=== PATIENT | female | born 1950 | race Caucasian/White ===

== ENCOUNTER 2017-04-28 11:26 | Inpatient (IN) | payer BC ==
[~2017-04-28] VITALS: Ht 160 cm; Wt 96.7 kg
[~2017-04-28 11:26] MED LIST: ASPIRIN E.C.81 M1 PO; AZOR 5/40 MG1 TABLET PO; AZOR PO; Benadryl PO; Colace PO; Ecotrin PO; FISH OIL 1,2001 EAC4 PO; Feosol PO; HYDROCHLOROTHIA25 MG PO; LO-DOSE ASPIRIN81 M1 PO; Levothroid,Synthroid PO; MELATONIN 3 MG1 EAC1 PO; Melatonin PO; OSCAL, OYSTER500 MG PO; Omega III EPA + DHA PO; PRAVACHOL20 MG PO; PRILOSEC OTC20 M1 PO; PROBIOTIC1 EAC1 PO; PROTONIX40 MG PO; PROVENTIL HFA6.7 GM IH; Pravachol PO; PriLOSEC OTC PO; Proventil,Ventolin H IH; SYMBICORT60 INHALA1 IH; SYNTHROID50 MCG PO; Senokot S,Pericolace PO; Symbicort 80-4.5 mcg IH; TENORMIN50 MG PO; TYLENOL EXTRA500 MG PO; Tenormin PO; VITAMIN D31000 UNIT PO; Vicodin,Norco 5/325 PO; ZESTRIL,PRINIVI10 M1 PO; predniSONE PO
[2017-04-28 12:14] LABS: HEMATOCRIT 37.9 % (36.0-46.0); HEMOGLOBIN 12.7 G/DL (11.9-15.5); MCH 29.1 PG (29.0-34.0); MCHC 33.5 G/DL (30.0-36.0); MCV 86.9 FL (83-99); PLATELET COUNT 197 K/uL (156-360); RBC DIS.WIDTH-CV 13.3 % (11.8-14.6); RBC DIS.WIDTH-SD 41.4 % (39-53); RED BLOOD COUNT 4.36 M/uL (3.80-5.20); WHITE BLOOD COUNT 10.1 K/uL (4.1-10.2)
[2017-04-28 12:25] LABS: CHLORIDE 105 mEq/L (99-109); POTASSIUM 4.2 mEq/L (3.7-5.4); SODIUM 139 mEq/L (136-147)
[2017-04-28 12:26] LABS: GLUCOSE 157 mg/dL (70-99)
[2017-04-28 12:30] LABS: GFR ESTIMATE (CALCULATED) > 59 mL/min/
[2017-04-28 12:31] LABS: UREA NITROGEN (BUN) 9 mg/dL (9-23)
[2017-04-28 12:38] LABS: TROP-I INTERPRETATION NEGATIVE; TROPONIN-I < 0.01 ng/mL (0.0-0.30)
[2017-04-28 14:02] LABS: INTER. NORMALIZED RATIO 1.2
[2017-04-28 14:05] LABS: PTT 26.2 SEC (25-37)
[2017-04-28] MEDS ORDERED: LEVOTHYROXINE50 MCG PO (17:32)
[2017-04-28] MEDS ORDERED: TENORMIN100 MG PO (17:34)
[2017-04-28] MEDS ORDERED: ASPIR 8181 M1 PO (17:38)
[2017-04-28] MEDS ORDERED: AZOR 10/40 M1 TABLET PO (17:42)
[2017-04-28] MEDS ORDERED: LEVEMIR FL100 UNIT/1 SC (17:48)
[2017-04-28] MEDS ORDERED: VICODIN 5-3001 EACH PO (17:51)
[2017-04-28 19:04] LABS: TROP-I INTERPRETATION NEGATIVE; TROPONIN-I < 0.01 ng/mL (0.0-0.30)
[2017-04-28 20:11] VITALS: BP 163/70
[2017-04-28] MEDS ORDERED: PRAVASTATIN SOD40 MG PO (23:09)
[2017-04-28 23:35] VITALS: BP 164/72
[2017-04-29 01:30] LABS: TROP-I INTERPRETATION NEGATIVE; TROPONIN-I < 0.01 ng/mL (0.0-0.30)
[2017-04-29 03:27] VITALS: BP 138/62
[2017-04-29 06:13] LABS: INTER. NORMALIZED RATIO 1.3
[2017-04-29 06:15] LABS: PTT 48.6 SEC (25-37)
[2017-04-29 07:34] VITALS: BP 126/66
[2017-04-29] MEDS ORDERED: XARELTO1 EACH PO (11:40)
[2017-04-29 12:13] VITALS: BP 142/69
[2017-04-29] MEDS ORDERED: ELIQUIS5 MG PO (12:13)
[2017-04-29 13:37] LABS: HEMATOCRIT 36.2 % (36.0-46.0); MCH 28.2 PG (29.0-34.0); MCHC 33.1 G/DL (30.0-36.0); MCV 85.2 FL (83-99); PLATELET COUNT 210 K/uL (156-360); RBC DIS.WIDTH-CV 13.1 % (11.8-14.6); RBC DIS.WIDTH-SD 39.8 % (39-53); RED BLOOD COUNT 4.25 M/uL (3.80-5.20); WHITE BLOOD COUNT 11.3 K/uL (4.1-10.2)
[2017-04-29 13:46] LABS: TROP-I INTERPRETATION NEGATIVE; TROPONIN-I 0.01 ng/mL (0.0-0.30)
[2017-04-29 13:47] LABS: ALBUMIN 3.8 G/DL (3.2-4.8); ALKALINE PHOSPHATASE 70 IU/L (3-129); ALT (GPT) 10 IU/L (3-49); AST (GOT) 13 IU/L (2-34); CHLORIDE 101 MEQ/L (99-109); CREATININE 0.9 MG/DL (0.6-1.3); GFR ESTIMATE (CALCULATED) > 59 mL/min/; SODIUM 135 MEQ/L (136-147); TOTAL BILIRUBIN 1.3 MG/DL (0.0-1.0); TOTAL PROTEIN 6.8 G/DL (6.4-8.3); UREA NITROGEN (BUN) 19 mg/dL (9-23)
[2017-04-29 13:48] LABS: GLUCOSE 324 mg/dL (70-99)
[2017-04-29 16:24] VITALS: BP 119/76
[2017-04-29 20:00] VITALS: BP 133/76
[2017-04-30] VITALS: BP 154/68
[2017-04-30 03:46] VITALS: BP 148/71
[2017-04-30 08:12] VITALS: BP 140/62
[2017-04-30 10:03] LABS: BASOPHIL (%) 0.1 % (0-1); EOSINOPHIL (%) 0.1 % (0-5); HEMATOCRIT 35.1 % (36.0-46.0); HEMOGLOBIN 11.7 G/DL (11.9-15.5); IMMATURE GRANULOCYTE (%) 1.5 % (0.0-0.7); LYMPHOCYTE (%) 7.3 % (15-42); MCH 28.6 PG (29.0-34.0); MCHC 33.3 G/DL (30.0-36.0); MCV 85.8 FL (83-99); MONOCYTE (%) 6.5 % (3-12); MONOCYTE COUNT 0.9 K/uL (0-0.8); NEUTROPHIL (%) 84.5 % (45-76); NEUTROPHIL COUNT 11.2 K/uL (1.8-6.4); PLATELET COUNT 246 K/uL (156-360); RBC DIS.WIDTH-CV 13.2 % (11.8-14.6); RBC DIS.WIDTH-SD 40.7 % (39-53); RED BLOOD COUNT 4.09 M/uL (3.80-5.20); WHITE BLOOD COUNT 13.2 K/uL (4.1-10.2)
[2017-04-30 10:15] LABS: CHLORIDE 104 mEq/L (99-109); POTASSIUM 4.7 mEq/L (3.7-5.4); SODIUM 138 mEq/L (136-147)
[2017-04-30 10:16] LABS: MAGNESIUM 2.2 mg/dL (1.3-2.7)
[2017-04-30 10:17] LABS: GLUCOSE 278 mg/dL (70-99)
[2017-04-30 10:21] LABS: GFR ESTIMATE (CALCULATED) > 59 mL/min/
[2017-04-30 10:23] LABS: UREA NITROGEN (BUN) 30 mg/dL (9-23)
[2017-04-30] MEDS ORDERED: ATENOLOL100 MG PO (10:44)
[2017-04-30 10:57] VITALS: BP 140/92
[2017-04-30] MEDS ORDERED: PREDNISONE10 MG PO (11:06)
[2017-04-30] MEDS ORDERED: ELIQUIS5 MG PO (12:00)
[2017-04-30 12:17] VITALS: BP 125/67
== END 2017-04-30 14:15 | disposition home or self-care (01) | DRG 176 ==
LOC: EME 11:26 → 5SOUTH 17:29 → EDOF 17:29 → ENRESERV 17:32 → 5SOUTH 19:27
PROVIDERS: Hospitalist; Physician Assistant
DX: I26.99 Other pulmonary embolism without acute cor pulmonale (principal); I82.441 Acute embolism and thrombosis of right tibial vein; E11.65 Type 2 diabetes mellitus with hyperglycemia; T38.0X5A Adverse effect of glucocorticoids and synthetic analogues, initial encounter; I27.20 Pulmonary hypertension, unspecified; M72.2 Plantar fascial fibromatosis; E78.5 Hyperlipidemia, unspecified; E03.9 Hypothyroidism, unspecified; I10 Essential (primary) hypertension; I25.10 Atherosclerotic heart disease of native coronary artery without angina pectoris; D64.9 Anemia, unspecified; G43.909 Migraine, unspecified, not intractable, without status migrainosus; J45.909 Unspecified asthma, uncomplicated; K21.9 Gastro-esophageal reflux disease without esophagitis; Z95.1 Presence of aortocoronary bypass graft
CPT/HCPCS: 71046; 71275; 80048; 80053; 82948; 83735; 84484; 85025; 85027; 85610; 85730; 93005; 93306; 93970; 94640; 94640 76; 94799; 99202; 99281; 99285; J1815; J2920; J7512

== ENCOUNTER 2017-05-14 17:16 | Emergency (ER) | payer BC ==
[~2017-05-14] VITALS: Ht 160 cm; Wt 96.2 kg
[~2017-05-14 17:16] MED LIST changes: +ASPIR 8181 M1 PO; +ATENOLOL100 MG PO; +AZOR 10/40 M1 TABLET PO; +ELIQUIS5 MG PO; +LEVEMIR FL100 UNIT/1 SC; +LEVOTHYROXINE50 MCG PO; +PRAVASTATIN SOD40 MG PO; +PREDNISONE10 MG PO; +TENORMIN100 MG PO; +VICODIN 5-3001 EACH PO; +XARELTO1 EACH PO
[2017-05-14 18:16] LABS: HEMATOCRIT 35.8 % (36.0-46.0); MCH 28.8 PG (29.0-34.0); MCHC 33.5 G/DL (30.0-36.0); MCV 86.1 FL (83-99); PLATELET COUNT 201 K/uL (156-360); RBC DIS.WIDTH-CV 13.5 % (11.8-14.6); RBC DIS.WIDTH-SD 42.5 % (39-53); RED BLOOD COUNT 4.16 M/uL (3.80-5.20); WHITE BLOOD COUNT 8.4 K/uL (4.1-10.2)
[2017-05-14 18:26] LABS: INTER. NORMALIZED RATIO 1.7
[2017-05-14 18:31] LABS: ALBUMIN 3.6 g/dL (3.2-4.8); CHLORIDE 103 mEq/L (99-109); POTASSIUM 4.3 mEq/L (3.7-5.4); PTT 29.1 SEC (25-37); SODIUM 140 mEq/L (136-147)
[2017-05-14 18:33] LABS: GLUCOSE 202 mg/dL (70-99); TOTAL PROTEIN 6.8 g/dL (6.4-8.3)
[2017-05-14 18:35] LABS: TOTAL BILIRUBIN 1.7 mg/dL (0.0-1.0)
[2017-05-14 18:37] LABS: ALKALINE PHOSPHATASE 87 IU/L (3-129); CREATININE 0.9 mg/dL (0.6-1.3); GFR ESTIMATE (CALCULATED) > 59 mL/min/
[2017-05-14 18:38] LABS: UREA NITROGEN (BUN) 13 mg/dL (9-23)
[2017-05-14 18:39] LABS: AST (GOT) 19 IU/L (2-34)
[2017-05-14 18:40] LABS: ALT (GPT) 17 IU/L (3-49); TROP-I INTERPRETATION NEGATIVE; TROPONIN-I < 0.01 ng/mL (0.0-0.30)
[2017-05-14] MEDS ORDERED: FLEXERIL10 MG PO (18:42)
[2017-05-14] MEDS ORDERED: DUONEB 2.5-0.5 M3 ML AEROSOL (20:17)
[2017-05-14] MEDS ORDERED: NEBULIZER MC (20:17)
[2017-05-14 21:06] VITALS: BP 117/59
== END 2017-05-14 21:08 | disposition home or self-care (01) ==
LOC: EME 17:16
PROVIDERS: Emergency Medicine Emergency Medical Services
DX: M62.838 Other muscle spasm (principal); I26.99 Other pulmonary embolism without acute cor pulmonale; R06.00 Dyspnea, unspecified; M72.2 Plantar fascial fibromatosis; E11.9 Type 2 diabetes mellitus without complications; E78.5 Hyperlipidemia, unspecified; E03.9 Hypothyroidism, unspecified; J45.909 Unspecified asthma, uncomplicated; Z79.01 Long term (current) use of anticoagulants; Z79.82 Long term (current) use of aspirin; Z79.4 Long term (current) use of insulin; Z90.49 Acquired absence of other specified parts of digestive tract
CPT/HCPCS: 71045; 80053; 83880; 84484; 85027; 85610; 85730; 93005; 94640; 99281; 99284

== ENCOUNTER 2017-06-07 20:21 | Emergency (ER) | payer BC ==
[~2017-06-07] VITALS: Ht 160 cm; Wt 96.1 kg
[~2017-06-07 20:21] MED LIST changes: +DUONEB 2.5-0.5 M3 ML AEROSOL; +FLEXERIL10 MG PO; +NEBULIZER MC
[2017-06-07 21:16] LABS: BASOPHIL (%) 0.3 % (0-1); EOSINOPHIL (%) 2.3 % (0-5); EOSINOPHIL COUNT 0.2 K/uL (0-0.3); HEMATOCRIT 37.2 % (36.0-46.0); HEMOGLOBIN 12.2 G/DL (11.9-15.5); IMMATURE GRANULOCYTE (%) 0.3 % (0.0-0.7); LYMPHOCYTE (%) 21.1 % (15-42); LYMPHOCYTE COUNT 1.9 K/uL (1.0-2.8); MCH 28.2 PG (29.0-34.0); MCHC 32.8 G/DL (30.0-36.0); MCV 86.1 FL (83-99); MONOCYTE (%) 7.7 % (3-12); MONOCYTE COUNT 0.7 K/uL (0-0.8); NEUTROPHIL (%) 68.3 % (45-76); NEUTROPHIL COUNT 6.2 K/uL (1.8-6.4); RBC DIS.WIDTH-CV 13.9 % (11.8-14.6); RBC DIS.WIDTH-SD 43.5 % (39-53); RED BLOOD COUNT 4.32 M/uL (3.80-5.20); WHITE BLOOD COUNT 9.1 K/uL (4.1-10.2)
[2017-06-07 21:20] LABS: PLATELET COUNT 269 K/uL (156-360)
[2017-06-07 21:24] LABS: CHLORIDE 103 mEq/L (99-109); POTASSIUM 4.1 mEq/L (3.7-5.4); SODIUM 138 mEq/L (136-147)
[2017-06-07 21:26] LABS: GLUCOSE 202 mg/dL (70-99)
[2017-06-07 21:30] LABS: CREATININE 0.9 mg/dL (0.6-1.3); GFR ESTIMATE (CALCULATED) > 59 mL/min/; INTER. NORMALIZED RATIO 1.6
[2017-06-07 21:31] LABS: UREA NITROGEN (BUN) 13 mg/dL (9-23)
[2017-06-07 21:32] LABS: PTT 30.7 SEC (25-37)
[2017-06-07 23:16] LABS: URIC ACID 5.6 mg/dL (3.1-9.2)
[2017-06-08] MEDS ORDERED: PREDNISONE10 MG PO (00:34)
[2017-06-08] MEDS ORDERED: TRAMADOL HCL50 MG PO (00:35)
[2017-06-08 01:20] VITALS: BP 126/52
== END 2017-06-08 01:26 | disposition home or self-care (01) ==
LOC: EME 20:21
PROVIDERS: Physician Assistant
DX: M10.9 Gout, unspecified (principal); J45.909 Unspecified asthma, uncomplicated; E78.5 Hyperlipidemia, unspecified; E11.9 Type 2 diabetes mellitus without complications; E03.9 Hypothyroidism, unspecified; Z79.4 Long term (current) use of insulin; Z79.82 Long term (current) use of aspirin
CPT/HCPCS: 73130; 73200; 80048; 84550; 85025; 85610; 85730; 93971; 99281; 99285; J7512

== ENCOUNTER 2017-09-08 21:32 | Emergency (ER) | payer OTHER, MEDICARE ==
[~2017-09-08] VITALS: Ht 160 cm; Wt 95.5 kg
[~2017-09-08 21:32] MED LIST changes: +TRAMADOL HCL50 MG PO
[2017-09-08 22:08] LABS: HEMATOCRIT 36.2 % (36.0-46.0); HEMOGLOBIN 12.1 G/DL (11.9-15.5); MCH 28.2 PG (29.0-34.0); MCHC 33.4 G/DL (30.0-36.0); MCV 84.4 FL (83-99); PLATELET COUNT 219 K/uL (156-360); RBC DIS.WIDTH-CV 13.7 % (11.8-14.6); RBC DIS.WIDTH-SD 42.1 % (39-53); RED BLOOD COUNT 4.29 M/uL (3.80-5.20); WHITE BLOOD COUNT 10.5 K/uL (4.1-10.2)
[2017-09-08 22:17] LABS: CHLORIDE 103 mEq/L (99-109); POTASSIUM 4.2 mEq/L (3.7-5.4); SODIUM 139 mEq/L (136-147)
[2017-09-08 22:19] LABS: GLUCOSE 160 mg/dL (70-99)
[2017-09-08 22:20] LABS: TOTAL PROTEIN 7.5 g/dL (6.4-8.3)
[2017-09-08 22:21] LABS: TOTAL BILIRUBIN 1.7 mg/dL (0.0-1.0)
[2017-09-08 22:23] LABS: ALKALINE PHOSPHATASE 103 IU/L (3-129); GFR ESTIMATE (CALCULATED) > 59 mL/min/
[2017-09-08 22:24] LABS: UREA NITROGEN (BUN) 13 mg/dL (9-23)
[2017-09-08 22:25] LABS: AST (GOT) 12 IU/L (2-34)
[2017-09-08 22:26] LABS: ALT (GPT) 8 IU/L (3-49)
[2017-09-09 00:11] LABS: APPEARANCE CLEAR ((CLEAR)); BILIRUBIN NEGATIVE; BLOOD NEGATIVE; COLOR YELLOW ((YELLOW)); GLUCOSE (STRIP) NEGATIVE; KETONES NEGATIVE; LEUKOCYTES TRACE; NITRITE NEGATIVE; PROTEIN (STRIP) NEGATIVE; SPECIFIC GRAVITY 1.018 (1.000-1.030)
[2017-09-09 00:13] LABS: BACTERIA NONE SEEN /HPF; EPITHELIAL CELLS RARE /HPF; MUCUS TRACE /LPF; RED BLOOD CELLS 0-5 /HPF (0-5); UCUL ADDED? NO; WHITE BLOOD CELLS 0-5 /HPF (0-5)
[2017-09-09] MEDS ORDERED: VENTOLIN HFA18 GM IH (01:28)
[2017-09-09] MEDS ORDERED: AUGMENTIN875 MG PO (01:28)
[2017-09-09] MEDS ORDERED: PREDNISONE20 MG PO (01:28)
[2017-09-09 02:02] VITALS: BP 134/60
== END 2017-09-09 02:03 | disposition home or self-care (01) ==
LOC: EME 21:32
DX: J20.9 Acute bronchitis, unspecified (principal); J32.9 Chronic sinusitis, unspecified; J45.909 Unspecified asthma, uncomplicated; E11.9 Type 2 diabetes mellitus without complications; E78.5 Hyperlipidemia, unspecified; E03.9 Hypothyroidism, unspecified; Z86.711 Personal history of pulmonary embolism; Z86.718 Personal history of other venous thrombosis and embolism; Z79.01 Long term (current) use of anticoagulants; Z95.1 Presence of aortocoronary bypass graft; Z95.0 Presence of cardiac pacemaker; Z79.4 Long term (current) use of insulin; Z79.82 Long term (current) use of aspirin; Z88.1 Allergy status to other antibiotic agents; Z88.8 Allergy status to other drugs, medicaments and biological substances
CPT/HCPCS: 71046; 80053; 81003; 85027; 94640; 99281; 99284; J2405; J7030; J7512

== ENCOUNTER 2017-10-13 18:44 | Inpatient (IN) | payer OTHER, MEDICARE ==
[~2017-10-13] VITALS: Ht 160 cm; Wt 94.9 kg
[~2017-10-13 18:44] MED LIST changes: +AUGMENTIN875 MG PO; -AZOR 10/40 M1 TABLET PO; +PREDNISONE20 MG PO; +VENTOLIN HFA18 GM IH; -VICODIN 5-3001 EACH PO
[2017-10-13 20:02] LABS: APPEARANCE CLEAR ((CLEAR)); BILIRUBIN NEGATIVE; BLOOD NEGATIVE; COLOR STRAW ((YELLOW)); GLUCOSE (STRIP) NEGATIVE; KETONES NEGATIVE; LEUKOCYTES SMALL; NITRITE NEGATIVE; PROTEIN (STRIP) NEGATIVE; SPECIFIC GRAVITY 1.009 (1.000-1.030); UROBILINOGEN 0.2 MG/DL (0.2-1.0)
[2017-10-13 20:16] LABS: BACTERIA RARE /HPF; EPITHELIAL CELLS 1+ /HPF; MUCUS TRACE /LPF; RED BLOOD CELLS 0-5 /HPF (0-5); UCUL ADDED? NO; WHITE BLOOD CELLS 0-5 /HPF (0-5)
[2017-10-13 20:34] LABS: BASOPHIL (%) 0.4 % (0-1); EOSINOPHIL (%) 2.7 % (0-5); EOSINOPHIL COUNT 0.2 K/uL (0-0.3); HEMATOCRIT 37.6 % (36.0-46.0); HEMOGLOBIN 12.3 G/DL (11.9-15.5); IMMATURE GRANULOCYTE (%) 0.4 % (0.0-0.7); LYMPHOCYTE (%) 19.4 % (15-42); LYMPHOCYTE COUNT 1.4 K/uL (1.0-2.8); MCH 27.8 PG (29.0-34.0); MCHC 32.7 G/DL (30.0-36.0); MCV 85.1 FL (83-99); MONOCYTE (%) 8.1 % (3-12); MONOCYTE COUNT 0.6 K/uL (0-0.8); PLATELET COUNT 274 K/uL (156-360); RBC DIS.WIDTH-CV 13.2 % (11.8-14.6); RBC DIS.WIDTH-SD 41.1 % (39-53); RED BLOOD COUNT 4.42 M/uL (3.80-5.20); WHITE BLOOD COUNT 7.3 K/uL (4.1-10.2)
[2017-10-13 20:40] LABS: INTER. NORMALIZED RATIO 1.5
[2017-10-13 20:42] LABS: PTT 27.9 SEC (25-37)
[2017-10-13 20:50] LABS: CHLORIDE 105 mEq/L (99-109); POTASSIUM 4.3 mEq/L (3.7-5.4); SODIUM 139 mEq/L (136-147)
[2017-10-13 20:51] LABS: GLUCOSE 202 mg/dL (70-99)
[2017-10-13 20:55] LABS: CREATININE 0.9 mg/dL (0.6-1.3); GFR ESTIMATE (CALCULATED) > 59 mL/min/
[2017-10-13 20:56] LABS: UREA NITROGEN (BUN) 11 mg/dL (9-23)
[2017-10-13 21:00] LABS: TROP-I INTERPRETATION NEGATIVE; TROPONIN-I < 0.01 ng/mL (0.0-0.30)
[2017-10-13] MEDS ORDERED: PANTOPRAZOLE SO40 MG PO (23:59)
[2017-10-14] VITALS (7 sets, daily range): BP systolic 128–148; BP diastolic 54–70
[2017-10-14] MEDS ORDERED: AZOR 10/40 M1 TABLET PO (00:05)
[2017-10-14] MEDS ORDERED: ULTRAM50 MG PO (00:08)
[2017-10-14] MEDS ORDERED: VICODIN 5-3001 EACH PO (00:08)
[2017-10-14 01:08] LABS: HDL CHOLESTEROL 36 MG/DL (Desirable>=50); LDL CHOLESTEROL 101 mg/dL (Desirable<100); NON-HDL CHOLESTEROL 176 mg/dL (Desirable<160); TOTAL CHOLESTEROL 212 mg/dL (Desirable<200); TRIGLYCERIDES 373 MG/DL (Normal: <150)
[2017-10-14 08:04] LABS: THYROTROPIN (TSH) 1.4 MIU/L (0.4-5.5)
[2017-10-14 12:36] LABS: HEMOGLOBIN A1c (GLYCOHEMOGLOB) 7.7 % (Below 5.7)
[2017-10-15 04:08] VITALS: BP 116/57
[2017-10-15 08:09] VITALS: BP 135/89
[2017-10-15 11:42] VITALS: BP 142/68
[2017-10-15 16:22] VITALS: BP 126/70
[2017-10-15 19:47] VITALS: BP 138/55
[2017-10-16 00:08] VITALS: BP 128/56
[2017-10-16 04:16] VITALS: BP 130/48
[2017-10-16 05:59] LABS: BASOPHIL (%) 0.6 % (0-1); EOSINOPHIL (%) 3.4 % (0-5); EOSINOPHIL COUNT 0.2 K/uL (0-0.3); HEMATOCRIT 37.3 % (36.0-46.0); HEMOGLOBIN 12.3 G/DL (11.9-15.5); IMMATURE GRANULOCYTE (%) 0.4 % (0.0-0.7); LYMPHOCYTE (%) 26.4 % (15-42); LYMPHOCYTE COUNT 1.8 K/uL (1.0-2.8); MCH 28.5 PG (29.0-34.0); MCV 86.3 FL (83-99); MONOCYTE (%) 8.8 % (3-12); MONOCYTE COUNT 0.6 K/uL (0-0.8); NEUTROPHIL (%) 60.4 % (45-76); NEUTROPHIL COUNT 4.1 K/uL (1.8-6.4); PLATELET COUNT 276 K/uL (156-360); RBC DIS.WIDTH-CV 13.4 % (11.8-14.6); RBC DIS.WIDTH-SD 42.4 % (39-53); RED BLOOD COUNT 4.32 M/uL (3.80-5.20); WHITE BLOOD COUNT 6.8 K/uL (4.1-10.2)
[2017-10-16 06:04] LABS: ALBUMIN 3.6 G/DL (3.2-4.8); ALKALINE PHOSPHATASE 75 IU/L (3-129); ALT (GPT) 7 IU/L (3-49); AST (GOT) 11 IU/L (2-34); CHLORIDE 103 MEQ/L (99-109); GFR ESTIMATE (CALCULATED) > 59 mL/min/; GLUCOSE 148 mg/dL (70-99); POTASSIUM 4.3 MEQ/L (3.7-5.4); SODIUM 141 MEQ/L (136-147); TOTAL BILIRUBIN 0.5 MG/DL (0.0-1.0); TOTAL PROTEIN 6.2 G/DL (6.4-8.3); UREA NITROGEN (BUN) 16 mg/dL (9-23)
[2017-10-16 08:44] VITALS: BP 147/57
[2017-10-16] MEDS ORDERED: ASPIR-LOW81 MG PO (11:43)
[2017-10-16 12:23] VITALS: BP 137/70
[2017-10-16 15:50] VITALS: BP 164/87
== END 2017-10-16 19:54 | disposition home or self-care (01) | DRG 64 ==
LOC: EME 18:44 → EDOF 23:15 → 4SOUTH 23:15 → EDOF 23:15 → 4SOUTH 23:59
PROVIDERS: Emergency Medicine; Hospitalist; Physician Assistant
DX: I63.9 Cerebral infarction, unspecified (principal); R47.01 Aphasia; I10 Essential (primary) hypertension; I27.20 Pulmonary hypertension, unspecified; E11.65 Type 2 diabetes mellitus with hyperglycemia; M79.643 Pain in unspecified hand; J45.909 Unspecified asthma, uncomplicated; R29.700 NIHSS score 0; E03.9 Hypothyroidism, unspecified; E11.9 Type 2 diabetes mellitus without complications; I26.99 Other pulmonary embolism without acute cor pulmonale; I25.10 Atherosclerotic heart disease of native coronary artery without angina pectoris; Z95.1 Presence of aortocoronary bypass graft; Z79.899 Other long term (current) drug therapy; Z79.01 Long term (current) use of anticoagulants; Z82.3 Family history of stroke; Z86.718 Personal history of other venous thrombosis and embolism; Z86.711 Personal history of pulmonary embolism; E78.00 Pure hypercholesterolemia, unspecified
CPT/HCPCS: 70450; 70551; 80048; 80053; 80061; 81003; 82948; 83036; 84443; 84484; 85025; 85610; 85730; 87040; 92507 GN; 92523 GN; 93005; 93306; 93880; 99281; 99285; G0378; J1815; J2060; J2405